=== PATIENT | male | born 1930 | race Caucasian/White ===

== ENCOUNTER 2017-04-06 13:16 | Inpatient (IN) ==
[2017-04-06] MEDS ORDERED: *HR* Heparin 5,000 UNIT/ML VIAL IVP ONE (13:40)
[2017-04-06] MEDS ORDERED: *HR* Heparin 5,000 UNIT/ML VIAL IVP PRN ×2 (13:40)
[2017-04-06] MEDS ORDERED: Heparin 25,000 UNIT/500 ML D5W 25,000 UNIT/500 ML MLS IVC SCH (13:45)
--- NOTE | 2017-04-06 13:45 | Emergency Department Note ---
Disposition Clinical Impression: Ischemic foot Disposition: Admitted As Inpatient Condition: Fair General Adult HPI - General Chief complaint: ED Chest Pain Stated complaint: right foot pain Time Seen by Provider: 04/06/17 13:27 Source: EMS Limitations: no limitations Nursing Notes Reviewed: Yes Vital Signs Reviewed: Yes - History of Present Illness HPI Narrative: Patient transferred from the [place] urgent care for evaluation of possible ischemic foot. Patient began complaining of pain on Thursday. and caregivers were unable to say when it started to change colors. There is concern about possible sprain of his ankle. Patient is unable to ambulate on his foot. Patient is somewhat confused and by states is related to his dementia. He states there is no change in mental status at this time. Pain Scale: 6 - Related Data Home Medications Medication Instructions Recorded Confirmed Allopurinol [Zyloprim 300 MG] 300 mg PO DAILY 04/06/17 04/06/17 Aspirin Enteric Coated [Aspirin EC] 81 mg PO DAILY 04/06/17 04/06/17 Budesonide/Formoterol 80/4.5 2 puff IH BID 04/06/17 04/06/17 [Symbicort 80/4.5] Calcium Citrate 400 mg PO BID 04/06/17 04/06/17 CloNIDine Patch [Catapres-TTS] 0.1 mg TD QWEEK 04/06/17 04/06/17 Donepezil HCl 23 mg PO HS 04/06/17 04/06/17 Ergocalciferol (VITAMIN D2) 50,000 unit PO MOTH 04/06/17 04/06/17 [Vitamin D2] Folic Acid 1 mg PO DAILY 04/06/17 04/06/17 Furosemide [Lasix] 20 mg PO DAILY 04/06/17 04/06/17 Gabapentin [Neurontin] 300 mg PO BID 04/06/17 04/06/17 Ipratropium [Atrovent Inhaler] 2 puff IH QID 04/06/17 04/06/17 Levothyroxine Sodium [Synthroid] 137 mcg PO QAM 04/06/17 04/06/17 Lisinopril [Zestril] 20 mg PO BID 04/06/17 04/06/17 Loperamide HCl [Anti-Diarrheal] 2 mg PO DAILY PRN 04/06/17 04/06/17 Magnesium Citrate 400 mg PO BID 04/06/17 04/06/17 Memantine HCl 10 mg PO BID 04/06/17 04/06/17 Omeprazole [PriLOSEC] 40 mg PO DAILY 04/06/17 04/06/17 Potassium Chloride [K-Tab ER] 20 meq PO DAILY 04/06/17 04/06/17 Pramipexole [Mirapex] 0.125 mg PO HS 04/06/17 04/06/17 Prazosin [Minipress] 1 mg PO HS 04/06/17 04/06/17 Psyllium Husk [Psyllium] 0.4 gm PO DAILY 04/06/17 04/06/17 Quetiapine Fumarate [SEROquel] 12.5 mg PO HS 04/06/17 04/06/17 Venlafaxine [Effexor] 37.5 mg PO BID 04/06/17 04/06/17 glyBURIDE [GlyBURIDE] 10 mg PO BIDWM 04/06/17 04/06/17 Allergies Allergy/AdvReac Type Severity Reaction Status Date / Time aspirin Allergy Nausea Verified 04/06/17 13:55 NSAIDS (Non-Steroidal Allergy Anaphylaxis Verified 04/06/17 13:55 Anti-Inflamma omeprazole Allergy Anaphylaxis Verified 04/06/17 13:55 tobacco Allergy Cough Uncoded 04/06/17 13:55 Review of Systems: CONSTITUTIONAL: No weight loss, fever, chills, weakness or fatigue. HEENT: Eyes: No visual changes. Ears, Nose, Throat: No hearing loss, difficulty talking or unable to swallow. SKIN: Foot discoloration CARDIOVASCULAR: No chest pain, chest pressure or chest discomfort. No palpitations or edema. RESPIRATORY: No shortness of breath, cough or sputum. GASTROINTESTINAL: No anorexia, nausea, vomiting or diarrhea. No abdominal pain or blood. GENITOURINARY: No burning on urination or hematuria. NEUROLOGICAL: No headache, dizziness, syncope, paralysis, ataxia, numbness or tingling in the extremities. No change in bowel or bladder control. MUSCULOSKELETAL: Foot pain Past Medical History - Past Medical History Medical history: Reports: arthritis, cancer, COPD, dementia, diabetes, hyperlipidemia, hypertension, renal disease, thyroid disease Psychiatric history: Reports: no psych history - Social History Smoking Status: Former smoker Alcohol use: Reports: none Drug use: Reports: none Physical Exam General appearance: NAD, conversant but confused Eyes: anicteric sclerae, moist conjunctivae; PERRL HENT: Atraumatic; oropharynx clear with moist mucous membranes and no mucosal ulcerations Neck: Normal inspection; Trachea midline; FROM, supple Lungs: CTA, with normal respiratory effort and no intercostal retractions CV: RRR, no MRGs Abdomen: Soft, non-tender; no rebound or gaurding Extremities: Right dorsum of foot with demarcation over the midfoot causing there to be a purple discoloration that has a Refill of 8 seconds. There is no palpable DP pulse. Doppler performed without dorsalis pedis pulse. Posterior tibial pulse also not present. The left extremity GÉNESIS was performed showing a GÉNESIS of 0.35. Skin: Normal temperature; no rash, ulcers or lesions - General Limitations: no limitations General appearance: alert Course - Reevaluation(s) Reevaluation #1: Patient continues to be stable. Patient not complaining of significant pain. Patient able to continue to wiggle his toes. Cap refill remains at 8 seconds. - Consultations Consultation #1: Dr. Vogel was paged at [phone]. Discussion at 8917. He was notified of decreased cap refill at 8 seconds. No Doppler pulses of the right foot both dorsalis pedis or posterior tibial. GÉNESIS of the left foot with a Doppler PT pulse and GÉNESIS of 0.35. 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 He requests a vascular lab ABIs performed prior to any further intervention. Consultation #2: Vascular lab notified at [id number] in regards to stat GÉNESIS. Consultation #3: Echo lab called back at 1526 with results of GÉNESIS. On the Right DP GÉNESIS of 0. PT at the ankle 0.37. Discussed with Dr. Coleman at 2152. He will come at bedside to evaluate the patient. He will likely need a diagnostic angiogram. Patient admitted to the hospital service to come and consult. Heparin to be started. Vital Signs Temperature 97.2 F L 04/06/17 13:17 Pulse Rate 64 04/06/17 13:17 Respiratory Rate 18 04/06/17 13:17 Blood Pressure 207/111 04/06/17 13:17 O2 Sat by Pulse Oximetry 96 04/06/17 13:17 Temperature 97.2 F L 04/06/17 13:17 Pulse Rate 55 04/06/17 15:27 Respiratory Rate 18 04/06/17 15:27 Blood Pressure 226/108 04/06/17 15:27 O2 Sat by Pulse Oximetry 97 04/06/17 15:27 Oxygen Delivery Oxygen Delivery Room Air Medical Decision Making - Lab Data Result diagrams: 04/06/17 13:50 04/06/17 13:50 Lab Results 04/06/17 04/06/17 04/06/17 Range/Units 13:50 13:50 13:50 WBC 7.3 (4.3-11.1) K/mcL RBC 5.06 (4.19-5.50) M/mcL Hgb 15.4 (12.9-16.9) g/dL Hct 46.9 (37.5-50.1) % MCV 92.7 (83.0-100.0) fL MCH 30.4 (28.0-33.3) pg MCHC 32.8 (31.6-35.5) g/dL RDW 12.3 (11.5-14.5) % Plt Count 197 (140-400) K/mcL MPV 11.1 (9.4-12.4) fL Immature Gran % 0.3 (0-4) % Seg Neutrophils % 64.3 % Lymphocytes % 24.7 % Monocytes % 8.2 % Eosinophils % 2.1 % Basophils % 0.4 % Neutrophils # 4.7 (1.6-8.9) K/mcL Lymphocytes # 1.8 (0.6-4.6) K/mcL Monocytes # 0.6 (0.0-1.3) K/mcL Eosinophils # 0.2 (0.0-0.6) K/mcL Basophils # 0.0 (0.0-0.2) K/mcL PT 11.8 (9.4-12.1) Seconds INR 1.1 APTT 26.4 (26.0-36.0) Seconds Sodium 138 (136-145) mEq/L Potassium 4.3 (3.5-4.5) mEq/L Chloride 100 (98-109) mEq/L Carbon Dioxide 29 (19-29) mEq/L BUN 21 (8-26) mg/dL Creatinine 1.78 H (0.72-1.25) mg/dL Est GFR ( Amer) 44 L (> 60) Est GFR (Non-Af Amer) 36 L (> 60) BUN/Creatinine Ratio 12 (6-26) Glucose 191 H (70-99) mg/dL Calculated Osmolality 294 (280-300) Calcium 9.5 (8.6-10.8) mg/dL Troponin I (0-0.03) ng/mL 04/06/17 Range/Units 13:50 WBC (4.3-11.1) K/mcL RBC (4.19-5.50) M/mcL Hgb (12.9-16.9) g/dL Hct (37.5-50.1) % MCV (83.0-100.0) fL MCH (28.0-33.3) pg MCHC (31.6-35.5) g/dL RDW (11.5-14.5) % Plt Count (140-400) K/mcL MPV (9.4-12.4) fL Immature Gran % (0-4) % Seg Neutrophils % % Lymphocytes % % Monocytes % % Eosinophils % % Basophils % % Neutrophils # (1.6-8.9) K/mcL Lymphocytes # (0.6-4.6) K/mcL Monocytes # (0.0-1.3) K/mcL Eosinophils # (0.0-0.6) K/mcL Basophils # (0.0-0.2) K/mcL PT (9.4-12.1) Seconds INR APTT (26.0-36.0) Seconds Sodium (136-145) mEq/L Potassium (3.5-4.5) mEq/L Chloride (98-109) mEq/L Carbon Dioxide (19-29) mEq/L BUN (8-26) mg/dL Creatinine (0.72-1.25) mg/dL Est GFR ( Amer) (> 60) Est GFR (Non-Af Amer) (> 60) BUN/Creatinine Ratio (6-26) Glucose (70-99) mg/dL Calculated Osmolality (280-300) Calcium (8.6-10.8) mg/dL Troponin I 0.00 (0-0.03) ng/mL Critical Care Time Critical Care Time: Yes Total Critical Care Time: 35 Attestation: CC time spent in consultation with vASC surgeon and medical management of life threatening limb injury. Attestation Statement - Attestation Attestation: I examined this patient and my medical decision-making was reviewed with the PATTERN PERFORATING MACHINE OPERATOR/PA/Advanced Practice Nurse/Resident Physician. I agree with the documented findings, disposition and treatment plan as described except to the extent set forth below.
[2017-04-06 14:00] LABS: Basophils % 0.4 %; Eosinophils # 0.2 K/mcL (0.0-0.6); Eosinophils % 2.1 %; Hematocrit 46.9 % (37.5-50.1); Hemoglobin 15.4 g/dL (12.9-16.9); Immature Granulocytes % 0.3 % (0-4); Lymphocytes # 1.8 K/mcL (0.6-4.6); Lymphocytes % 24.7 %; Mean Corpuscular HGB Conc 32.8 g/dL (31.6-35.5); Mean Corpuscular Hemoglobin 30.4 pg (28.0-33.3); Mean Corpuscular Volume 92.7 fL (83.0-100.0); Mean Platelet Volume 11.1 fL (9.4-12.4); Monocytes # 0.6 K/mcL (0.0-1.3); Monocytes % 8.2 %; Neutrophils # 4.7 K/mcL (1.6-8.9); Platelet Count 197 K/mcL (140-400); Red Blood Count 5.06 M/mcL (4.19-5.50); Red Cell Distribution Width 12.3 % (11.5-14.5); Segmented Neutrophils % 64.3 %
[2017-04-06 14:03] LABS: INR 1.1; Prothrombin Time 11.8 Seconds (9.4-12.1)
[2017-04-06 14:06] LABS: Activated Partial Thrombo Time 26.4 Seconds (26.0-36.0)
[2017-04-06 15:05] LABS: Calcium 9.5 mg/dL (8.6-10.8); Potassium 4.3 mEq/L (3.5-4.5)
[2017-04-06] MEDS ORDERED: Naloxone 0.4 MG/ML INJ IVP PRN (17:06)
[2017-04-06] MEDS ORDERED: CloNIDine Patch 0.1 MG PATCH (WEEKLY) TD SCH (17:15)
--- NOTE | 2017-04-06 17:17 | Vascular/Endovasc Consult Note ---
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 His GÉNESIS is consistent with severe disease in the right lower extremity. He has no tissue loss. The patient will be admitted and started on a heparin drip. He has been scheduled for an angiogram with possible intervention. The risks, benefits and alternatives were discussed and all questions were answered. He expressed understanding and wishes to proceed. Qualifiers: Peripheral atherosclerosis artery type: [place] artery Qualified Code(s): I70.221 - Atherosclerosis of [place] arteries of extremities with rest pain, right leg (2) Essential hypertension Status: Chronic (3) Hypothyroidism Status: Chronic Qualifiers: Hypothyroidism type: acquired Qualified Code(s): E03.9 - Hypothyroidism, unspecified (4) Diabetes mellitus Status: Chronic (5) Chronic kidney disease, stage 3 Status: Chronic The patient has chronic kidney disease stage III. He will need IVF hydration and mucomyst prior to the procedure. - History of Present Illness Consult date: 04/06/17 Requesting physician: Osvaldo Hancock Consult reason: Peripheral vascular disease Chief complaint: Right foot cyanosis History of present illness: Mr. Mares is a 87 year old male who presents to [facility] ER with complaints of discoloration and coolness in his right foot. The patient intially injured his ankle and then developed pain and discoloration. The patient reports that his foot did not get better and he was seen at the [facility]. Due to his symptoms, he was transferred to [facility] ER for further evaluation. Concern for limb ischemia arose and vascular surgery was consulted for further evaluation. At the time of exam, the patient reports that he is comfortable. He reports that his foot does not hurt at this time, but feels cold. He denies any chest pain, palpitations or shortness of breath. Past Med Surg Social Fam HX - Past Medical History Medical history: arthritis, cancer, COPD, dementia, diabetes, hyperlipidemia, hypertension, renal disease, thyroid disease Psychiatric history: no psych history - Social History Smoking Status: Former smoker Alcohol use: none Drug use: none - Family History Mother Living Status: Age at : 63 Cause of : CVA Father Living Status: Cause of : Lung CA Medications and Allergies Allopurinol [Zyloprim 300 MG] 300 mg PO DAILY 04/06/17 [History] Aspirin Enteric Coated [Aspirin EC] 81 mg PO DAILY 04/06/17 [History] Budesonide/Formoterol 80/4.5 [Symbicort 80/4.5] 2 puff IH BID 04/06/17 [History ] Calcium Citrate 400 mg PO BID 04/06/17 [History] CloNIDine Patch [Catapres-Tts] 0.1 mg TD QWEEK 04/06/17 [History] Donepezil HCl 23 mg PO HS 04/06/17 [History] Ergocalciferol (VITAMIN D2) [Vitamin D2] 50,000 unit PO MOTH 04/06/17 [History] Folic Acid 1 mg PO DAILY 04/06/17 [History] Furosemide [Lasix] 20 mg PO DAILY 04/06/17 [History] Gabapentin [Neurontin] 300 mg PO BID 04/06/17 [History] Ipratropium [ATROVENT Inhaler] 2 puff IH QID 04/06/17 [History] Levothyroxine Sodium [Synthroid] 137 mcg PO QAM 04/06/17 [History] Lisinopril [Zestril] 20 mg PO BID 04/06/17 [History] Loperamide HCl [Anti-Diarrheal] 2 mg PO DAILY PRN 04/06/17 [History] Magnesium Citrate 400 mg PO BID 04/06/17 [History] Memantine HCl 10 mg PO BID 04/06/17 [History] Potassium Chloride [K-Tab ER] 20 meq PO DAILY 04/06/17 [History] Pramipexole [Mirapex] 0.125 mg PO HS 04/06/17 [History] Prazosin [Minipress] 1 mg PO HS 04/06/17 [History] Psyllium Husk [Psyllium] 0.4 gm PO DAILY 04/06/17 [History] Quetiapine Fumarate [Seroquel] 12.5 mg PO HS 04/06/17 [History] Venlafaxine [Effexor] 37.5 mg PO BID 04/06/17 [History] glyBURIDE [GlyBURIDE] 10 mg PO BIDWM 04/06/17 [History] Clopidogrel [Plavix] 75 mg PO DAILY #30 tablet 04/08/17 [Rx] Pantoprazole Sodium 40 mg PO DAILY #30 tablet. 04/08/17 [Rx] Allergies aspirin Allergy (Verified 04/06/17 13:55) Nausea NSAIDS (Non-Steroidal Anti-Inflamma Allergy (Verified 04/06/17 13:55) Anaphylaxis tobacco Allergy (Uncoded 04/06/17 13:55) Cough All Systems Review: A 10-system review of systems was performed and is negative for pertinent findings except as documented above in the HPI. - Constitutional Constitutional: no chills, no fever(s) - Cardiovascular Cardiovascular: no chest pain at rest, no chest pain with exertion, no dyspnea at rest, no dyspnea on exertion Exam General: Present: Conversant, No Apparent Distress HEENT: Present: Atraumatic, Normocephaly, Pupils equal Neck: Absent: JVD, Lymphadenopathy, Left Carotid bruit, Right Carotid bruit Lungs: Present: Normal Breath Sounds, No Wheeze, Rales, Rhonchi Neuro: Present: Cranial nerves grossly intact, Motor nerves grossly intact ( diminished motor at bilateral toes), Sensory nerves grossly intact, Other ( resting comfortably, but easily arousable and appropriate response to questions and commands) Abdomen: Present: Soft, Non-tender Vascular: Present: Normal capillary refill (except at right forefoot below ankle , patient has cap refill <4 secs below ankle, right forefoot ruborous, blanches easily), Pulse, absent (pedal signals present bilaterally and biphasic, dorsalis pedis signal lost below right ankle). Absent: Edema Skin: Present: No rashes noted on visualized skin, Other (compartments soft) Consult Discharge Plan - Plan Instructions: Diabetes Mellitus Type 2 in Adults (DC), Peripheral Vascular Disorders (DC), Chronic Hypertension (DC) Additional Instructions: Follow-up with vascular surgery in one week Referrals: NO,PCP [Primary Care Provider] - () Prescriptions: Clopidogrel [Plavix] 75 mg PO DAILY #30 tablet Pantoprazole Sodium 40 mg PO DAILY #30 tablet.
[2017-04-06] MEDS ORDERED: Nitroglycerin 25 MG/250 ML INFUS..BTL IVC SCH (17:45)
--- NOTE | 2017-04-06 17:46 | Internal Med History&Physical ---
Date of Encounter: 04/06/17 Time of Encounter: 17:42 Assessment and Plan (1) Ischemia of right lower extremity Current visit: Yes Status: Acute Patient presents with cold, pulseless right foot. GÉNESIS on right was 0. Heparin drip. Dr. Goode consulted and plans angiogram tomorrow. NPO after midnight for planned procedure. (2) Acute kidney injury superimposed on chronic kidney disease Current visit: Yes Status: Acute Patient's creatinine 1.78, up from previous baseline of 1.37 in December. Patient to have vascular intervention tomorrow and we would like to protect the kidneys. Hold lasix and lisinopril IV fluids 0.9NS at 125ml/hr Mucomyst Q6 hours for 2 doses prior to angiogram and 2 doses after angiogram. check chemistry with morning labs. (3) Essential hypertension Current visit: Yes Status: Acute Patient has been very hypertensive since arrival, running 200's over 100s. Holding lisinopril and lasix due to NANCI. Nitro drip, titrate to SBP < 160. Continue clonidine patch, minipress. (4) Type 2 diabetes mellitus Current visit: Yes Status: Acute Check Hgb a1c Hold glyburide check blood sugars ACHS and Q6hr when NPO Sliding scale correction dose hypoglycemic protocol. Qualifiers: Diabetes mellitus complication status: with neurologic complications Diabetes mellitus complication detail: with polyneuropathy Diabetes mellitus intermodal customer service insulin use: without intermodal customer service use Qualified Code(s): E11.42 - Type 2 diabetes mellitus with diabetic polyneuropathy (5) Dementia Current visit: Yes Status: Acute Patient with Parkinson's dementia. He is oriented, but answers questions inappropriately at times. reports this is his baseline and "you never know what you are going to get". Continue home doses of donepezil, memantine, and mirapex. Monitor patient for increased confusion overnight. Fall precautions. Qualifiers: Dementia type: Parkinson's disease Dementia behavioral disturbance: without behavioral disturbance Qualified Code(s): G20 - Parkinson's disease; F02.80 - Dementia in other diseases classified elsewhere without behavioral disturbance (6) DVT prophylaxis Current visit: Yes Status: Acute Patient on heparin drip for ischemic foot, additional pharmacologic prophylaxis not warranted. Internal Medicine - H&P: HPI Chief complaint: right foot pain Admitted From: Emergency Dept Plans for Post Hospital Care: Home History of present illness: Mr. Mares is a 87 year old male with type 2 diabetes, hypertension, hyperlipidemia, chronic kidney disease, Parkinson's dementia, who presented to the emergency department from the [place] with a cold right foot. Patient reported that his right foot had been hurting him since an injury yesterday, patient reports that it is just cold now. He denies any headache, lightheadedness, chest pain, palpitations, shortness of breath, fever, chills or sweats. Evaluation in the emergency department included Dopplers of right foot with absent dorsalis pedis and posterior tibial pulse, delayed capillary refill, GÉNESIS on the right was 0. Dr. Goode of vascular surgery was consulted and plans vascular intervention tomorrow. Additional evaluation included labs which showed a BRITTON and CK 80 with creatinine of 1.78 up from previous known baseline of 1.37 in December. A showed no acute abnormality, troponin was normal at 0.00. Patient was hypertensive with blood pressures in the 200s over 100s. Heparin drip was started at the suggestion of Dr. Goode. On exam, patient is alert and oriented, occasionally answers questions inappropriately, patient's reports this is his baseline mental status. Heart has regular rate and rhythm, lungs are clear bilaterally to auscultation. Right foot is dark red below the ankle, has delayed capillary refill, absent pulses, and is cold to touch. Past Med Surg Social Fam HX - Past Medical History Medical history: arthritis, cancer, COPD, dementia, diabetes, hyperlipidemia, hypertension, renal disease, thyroid disease Psychiatric history: no psych history - Past Surgical History Surgical History: cholecystectomy, knee replacement, orthopedic, other, vascular surgery - Social History Smoking Status: Former smoker Alcohol use: none Drug use: none - Family History Mother Living Status: Age at : 63 Cause of : CVA Father Living Status: Cause of : Lung CA Internal Medicine - H&P: Meds Allopurinol [Zyloprim 300 MG] 300 mg PO DAILY 04/06/17 [History] Aspirin Enteric Coated [Aspirin EC] 81 mg PO DAILY 04/06/17 [History] Budesonide/Formoterol 80/4.5 [Symbicort 80/4.5] 2 puff IH BID 04/06/17 [History ] Calcium Citrate 400 mg PO BID 04/06/17 [History] CloNIDine Patch [Catapres-TTS] 0.1 mg TD QWEEK 04/06/17 [History] Donepezil HCl 23 mg PO HS 04/06/17 [History] Ergocalciferol (VITAMIN D2) [Vitamin D2] 50,000 unit PO MOTH 04/06/17 [History] Folic Acid 1 mg PO DAILY 04/06/17 [History] Furosemide [Lasix] 20 mg PO DAILY 04/06/17 [History] Gabapentin [Neurontin] 300 mg PO BID 04/06/17 [History] Ipratropium [Atrovent Inhaler] 2 puff IH QID 04/06/17 [History] Levothyroxine Sodium [Synthroid] 137 mcg PO QAM 04/06/17 [History] Lisinopril [Zestril] 20 mg PO BID 04/06/17 [History] Loperamide HCl [Anti-Diarrheal] 2 mg PO DAILY PRN 04/06/17 [History] Magnesium Citrate 400 mg PO BID 04/06/17 [History] Memantine HCl 10 mg PO BID 04/06/17 [History] Omeprazole [PriLOSEC] 40 mg PO DAILY 04/06/17 [History] Potassium Chloride [K-Tab ER] 20 meq PO DAILY 04/06/17 [History] Pramipexole [Mirapex] 0.125 mg PO HS 04/06/17 [History] Prazosin [Minipress] 1 mg PO HS 04/06/17 [History] Psyllium Husk [Psyllium] 0.4 gm PO DAILY 04/06/17 [History] Quetiapine Fumarate [SEROquel] 12.5 mg PO HS 04/06/17 [History] Venlafaxine [Effexor] 37.5 mg PO BID 04/06/17 [History] glyBURIDE [GlyBURIDE] 10 mg PO BIDWM 04/06/17 [History] Allergies aspirin Allergy (Verified 04/06/17 13:55) Nausea NSAIDS (Non-Steroidal Anti-Inflamma Allergy (Verified 04/06/17 13:55) Anaphylaxis omeprazole Allergy (Verified 04/06/17 13:55) Anaphylaxis tobacco Allergy (Uncoded 04/06/17 13:55) Cough All Systems PM: A 10-system review of systems was performed and is negative for pertinent findings except as documented above in the HPI. - Constitutional Constitutional: no chills, no fever(s), no night sweats - EENT Eyes: no change in vision, no discharge, no pain, no photophobia Ears: no ear discharge, no ear pain, no tinnitus Nose, mouth and throat: no dysphagia, no nasal discharge, no neck pain, no sore throat - Cardiovascular Cardiovascular ROS IM: no chest pain, no diaphoresis, no dyspnea, no lightheadedness, no palpitations, no syncope - Respiratory Respiratory: no cough, no dyspnea, no wheezing, no excessive phlegm production - Gastrointestinal Gastrointestinal: no abdominal pain, no diarrhea, no hematemesis, no hematochezia, no melena, no nausea, no vomiting - Musculoskeletal Musculoskeletal ROS IM: no numbness, no tingling Additional comments: right foot feels cold - Integumentary Integumentary IM: no rash, no unusual bruising - Neurological Neurological ROS: no confusion, no convulsions, no focal weakness, no numbness, no tingling, no tremor(s) - Hematologic/Lymphatic Hematologic/Lymphatic: no easy bruising - Constitutional Vitals: Temp Pulse Resp BP Pulse Ox 97.2 F L 55 18 226/108 97 04/06/17 13:17 04/06/17 15:27 04/06/17 15:27 04/06/17 15:27 04/06/17 15:27 General appearance: Present: A&O X 3, pleasant, no acute distress - Head Head exam: Present: atraumatic, normocephalic - Eye Eye exam: Present: PERRL, conjuntiva pink, sclera anicteric Pupils: Present: PERRL - Neck Neck exam general surgery: Present: supple, trachea midline. Absent: lymphadenopathy - Respiratory Respiratory exam: Present: CTAB. Absent: accessory muscle use, rales, rhonchi, wheezes - Cardiovascular Cardiovascular exam: Present: RRR, +S1, +S2. Absent: diastolic murmur, gallop, rubs, systolic murmur - GI/Abdominal GI/Abdominal exam: Present: normal bowel sounds, soft, no peritoneal signs. Absent: distended, tenderness - Extremities Exam Extremities exam: Present: radial pulses palpable and symetrical. Absent: calf tenderness, cyanotic, normal capillary refill, pedal edema - Expanded Lower Extremities Exam Foot/Toe exam: Present: erythema (right foot below ankle) Neuro vascular tendon exam: Present: extremity cold to touch (right foot), pulse deficit (right dorsalis pedis and posterior tibial) - Neurological Exam Neurological exam: Present: CN II-XII intact, oriented X3, no focal deficits. Absent: facial droop, speech deficit - Skin Skin exam: Present: dry, intact Internal Med - H&P Results - Labs CBC & Chem 7: 04/06/17 13:50 04/06/17 13:50 Labs: All Lab Results (24 Hours) 04/06/17 04/06/17 04/06/17 Range/Units 13:50 13:50 13:50 WBC 7.3 (4.3-11.1) K/mcL RBC 5.06 (4.19-5.50) M/mcL Hgb 15.4 (12.9-16.9) g/dL Hct 46.9 (37.5-50.1) % MCV 92.7 (83.0-100.0) fL MCH 30.4 (28.0-33.3) pg MCHC 32.8 (31.6-35.5) g/dL RDW 12.3 (11.5-14.5) % Plt Count 197 (140-400) K/mcL MPV 11.1 (9.4-12.4) fL Immature Gran % 0.3 (0-4) % Seg Neutrophils % 64.3 % Lymphocytes % 24.7 % Monocytes % 8.2 % Eosinophils % 2.1 % Basophils % 0.4 % Neutrophils # 4.7 (1.6-8.9) K/mcL Lymphocytes # 1.8 (0.6-4.6) K/mcL Monocytes # 0.6 (0.0-1.3) K/mcL Eosinophils # 0.2 (0.0-0.6) K/mcL Basophils # 0.0 (0.0-0.2) K/mcL PT 11.8 (9.4-12.1) Seconds INR 1.1 APTT 26.4 (26.0-36.0) Seconds Sodium 138 (136-145) mEq/L Potassium 4.3 (3.5-4.5) mEq/L Chloride 100 (98-109) mEq/L Carbon Dioxide 29 (19-29) mEq/L BUN 21 (8-26) mg/dL Creatinine 1.78 H (0.72-1.25) mg/dL Est GFR ( Amer) 44 L (> 60) Est GFR (Non-Af Amer) 36 L (> 60) BUN/Creatinine Ratio 12 (6-26) Glucose 191 H (70-99) mg/dL Calculated Osmolality 294 (280-300) Calcium 9.5 (8.6-10.8) mg/dL Troponin I (0-0.03) ng/mL 04/06/17 Range/Units 13:50 WBC (4.3-11.1) K/mcL RBC (4.19-5.50) M/mcL Hgb (12.9-16.9) g/dL Hct (37.5-50.1) % MCV (83.0-100.0) fL MCH (28.0-33.3) pg MCHC (31.6-35.5) g/dL RDW (11.5-14.5) % Plt Count (140-400) K/mcL MPV (9.4-12.4) fL Immature Gran % (0-4) % Seg Neutrophils % % Lymphocytes % % Monocytes % % Eosinophils % % Basophils % % Neutrophils # (1.6-8.9) K/mcL Lymphocytes # (0.6-4.6) K/mcL Monocytes # (0.0-1.3) K/mcL Eosinophils # (0.0-0.6) K/mcL Basophils # (0.0-0.2) K/mcL PT (9.4-12.1) Seconds INR APTT (26.0-36.0) Seconds Sodium (136-145) mEq/L Potassium (3.5-4.5) mEq/L Chloride (98-109) mEq/L Carbon Dioxide (19-29) mEq/L BUN (8-26) mg/dL Creatinine (0.72-1.25) mg/dL Est GFR ( Amer) (> 60) Est GFR (Non-Af Amer) (> 60) BUN/Creatinine Ratio (6-26) Glucose (70-99) mg/dL Calculated Osmolality (280-300) Calcium (8.6-10.8) mg/dL Troponin I 0.00 (0-0.03) ng/mL - Diagnostic Studies Chest x-ray Additional comments: Chest X-Ray 04/06/17 13:40 IMPRESSION: No acute abnormality. D/ / Blake Hess MD / Blake Hess MD Interpreting Provider: Blake Hess MD
--- NOTE | 2017-04-06 17:49 | Event Note ---
Date of Encounter: 04/06/17 Time of Encounter: 17:46 Patient seen and examined with nurse practitioner. Acute ischemia on the right leg and foot. Patient is having color changes and rest pain. Absent dorsalis pedis pulsations. Vascular surgery evaluated the patient and 11 angiography in the morning. Discussed with risk of contrast nephropathy. To keep the patient hydrated in addition to mucomyst. Patient has hypertensive urgency. We will start nitroglycerin drip. Patient this full code
[2017-04-06] MEDS ORDERED: *HR* Dextrose 50 % in Water (Syg) 50 ML SYRINGE IVP PRN (17:57)
[2017-04-06] MEDS ORDERED: Dextrose Gel 15 GM PO PRN ×2 (17:57)
[2017-04-06] MEDS ORDERED: D5% in Water 1,000 ML IVC PRN (17:57)
[2017-04-06] MEDS ORDERED: Budesonide/Formoterol 80/4.5 MDI IH SCH (21:00)
[2017-04-06] MEDS ORDERED: (Donepezil Hcl [Donepezil Hcl] 23 MG) PO SCH (21:00)
[2017-04-06] MEDS ORDERED: Insulin LISPRO 300 UNITS/3 ML VIAL SQ SCH (21:00)
[2017-04-06] MEDS: 0.9 % Sodium Chloride 1,000 ML IVC SCH (21:29)
[2017-04-06] MEDS: Gabapentin 300 MG CAPSULE PO SCH (21:31)
[2017-04-06 22:58] LABS: Activated Partial Thrombo Time 128.8 Seconds (26.0-36.0)
[2017-04-06 23:11] LABS: Heparin anti-factor XA UFH 0.88 IU/mL (0.30-0.70)
[2017-04-07] MEDS: Insulin LISPRO 300 UNITS/3 ML VIAL SQ SCH ×4 (01:15→17:29)
[2017-04-07] MEDS: 0.9 % Sodium Chloride 1,000 ML IVC SCH ×3 (06:09→23:24)
[2017-04-07 06:58] LABS: Basophils % 0.5 %; Eosinophils # 0.2 K/mcL (0.0-0.6); Eosinophils % 2.1 %; Hematocrit 38.7 % (37.5-50.1); Immature Granulocytes % 0.3 % (0-4); Lymphocytes # 2.2 K/mcL (0.6-4.6); Lymphocytes % 28.5 %; Mean Corpuscular HGB Conc 33.6 g/dL (31.6-35.5); Mean Corpuscular Hemoglobin 30.7 pg (28.0-33.3); Mean Corpuscular Volume 91.3 fL (83.0-100.0); Mean Platelet Volume 11.8 fL (9.4-12.4); Monocytes # 0.6 K/mcL (0.0-1.3); Neutrophils # 4.6 K/mcL (1.6-8.9); Platelet Count 165 K/mcL (140-400); Red Blood Count 4.24 M/mcL (4.19-5.50); Red Cell Distribution Width 12.6 % (11.5-14.5); Segmented Neutrophils % 60.6 %
[2017-04-07] MEDS ORDERED: Heparin 1,000 UNITS/500 mL NS 500 ML ONE (07:03)
[2017-04-07] MEDS ORDERED: *HR* Heparin 10,000 UNIT/10 ML VIAL ONE (07:03)
[2017-04-07] MEDS ORDERED: 0.9 % Sodium Chloride 1,000 ML ONE (07:03)
[2017-04-07 07:06] LABS: INR 1.1; Prothrombin Time 12.4 Seconds (9.4-12.1)
[2017-04-07 07:23] LABS: Calcium 8.5 mg/dL (8.6-10.8); Potassium 3.7 mEq/L (3.5-4.5)
--- NOTE | 2017-04-07 07:24 | Arterial Study Report ---
LE Arterial Physiologic Study Patient Name:Everett Mares Order Number:[id number] Procedure Date:04/06/2017 Date:8Age:87 yrs Gender:Male Lt BP:230 / mmHg Rt.BP:228 / mmHgHeart Rate: Location:[facility] ED Room #: 25 Chief Technician X Ray:Julius Sharma RN Referring MD:Osvaldo Hancock DO regulatory internship:None Reading MD:Adolph Alvarado MD Primary Indications:Cold Foot Risk Factors Yes/No Hypertension Yes Smoker Previous No Anticoagulants No Previous Vascular Surgery No Diabetes No Hypercholesterolemia No Impressions: The right GÉNESIS is consistent with severe disease Right GÉNESIS: 0.37. The left GÉNESIS is consistent with mild disease. Left GÉNESIS: 0.84 Recommendations: Risk factor reduction. Further evaluation recommended. After imaging the patient was sent to the emergency room. Test completed on 04/06/2017 at 3:10:00 pm. Critical findings reported to Dr Osvaldo Hancock by phone at 3:25:00 pm on 04/06/2017 by Julius Sharma RN. Findings LE Arterial Physiologic Exam: Segmental Pressures: Right: The right high thigh pressure is 200 mmHg with an index of 0.87. The right above knee pressure is 182 mmHg with an index of 0.79. The right below knee pressure is 148 mmHg with an index of 0.64. The right posterior tibial pressure is 84 mmHg with an index of 0.37. Left: The left posterior tibial pressure is 193 mmHg with an index of 0.84. The left dorsalis pedis pressure is 185 mmHg with an index of 0.8. PVR: Right: The PVR waveforms are mildly diminished in the right high thigh, moderately diminished in the right lower thigh and severely diminished in the right calf and right ankle. Left: The PVR waveforms are mildly diminished in the left ankle. Prior Study: No prior study available for comparison. Segmental Pressures Side Location Pressure Index Result Right High Thigh 200 0.87 Mildly Diminished Right Above Knee 182 0.79 Moderately Diminished Right Below Knee 148 0.64 Severely Diminished Right Posterior Tibial 84 0.37 Severely Diminished Right Dorsalis Pedis 0 Left High Thigh noncompressible Left Above Knee noncompressible Left Below Knee noncompressible Left Posterior Tibial 193 0.84 Mildly Diminished Left Dorsalis Pedis 185 0.80 Mildly Diminished Ankle Brachial Index Right Systolic Diastolic GÉNESIS Brachial 228 0.37 Posterior Tibial 84 0.37 Left Systolic Diastolic GÉNESIS Brachial 230 0.84 Dorsalis Pedis 185 0.80 Posterior Tibial 193 0.84 Updated by Adolph Alvarado MD on 04/07/2017 7:19:13 AM with Status of Final electronically signed on 04/07/2017 7:19:30 AM with status of Final
[2017-04-07] MEDS ORDERED: Insulin LISPRO 300 UNITS/3 ML VIAL SQ SCH ×2 (07:30→21:00)
--- NOTE | 2017-04-07 07:49 | Pre-Sedation Evaluation ---
Pre-sedation evaluation - Pre-sedation checklist Date of procedure: 04/07/17 Procedure: angiogram Recent Vitals: Last Vital Signs Temp 98.3 F 04/07/17 04:05 Pulse 70 04/07/17 07:16 Resp 16 04/07/17 07:16 BP 148/82 04/07/17 07:16 Pulse Ox 99 04/07/17 04:05 H&P (including ROS) documented in medical record: Yes Previous reaction to sedatives/anesthetics: No Dietary Status: NPO after Midnight Dentition: dentures removed ASA Classification *see protocol: CLASS III-Severe systemic disease Plan of Care: Pt appropriate candidate for procedure/moderate/conscious sedation , Risks/benefits of procedure/sedation discussed w/ patient/family
[2017-04-07] MEDS: Budesonide/Formoterol 80/4.5 MDI IH SCH ×2 (08:08→20:01)
[2017-04-07] MEDS ORDERED: *HR* FentaNYL (PF) 100 MCG/2 ML VIAL ONE ×2 (08:16→08:38)
--- NOTE | 2017-04-07 08:41 | Procedure Note ---
Date of procedure: 04/07/17 Pre-op diagnosis: Peripheral vascular disease with rest pain Post-op diagnosis: same Procedure: Aortogram with bilateral lower extremity runoff, right lower extremity selective angiography, right superficial femoral artery angioplasty with 4 x 220mm balloon via left common femoral artery 4 welsh sheath. Direct pressure held for hemostasis. Anesthesia: IV sedation (moderate conscious sedation) Surgeon: Adolph Alvarado Estimated blood loss (cc): 1 Pathology: none sent Condition: stable (no complications) Disposition: floor
--- NOTE | 2017-04-07 08:47 | Event Note ---
Date of Encounter: 04/07/17 Time of Encounter: 08:40 The patient underwent angiography with right superficial femoral artery angioplasty this morning. His angiogram revealed a right anterior tibial artery chronic occlusion. His right posterior tibial artery and peroneal artery terminate above the ankle. No significant vessels are identified in the right foot. The patient will be started on Plavix. Continue with IVF hydration and mucomyst due to his chronic kidney disease. Bedrest today.
[2017-04-07] MEDS ORDERED: *HR* HYDROcodone/Acet 5/325 mg TABLET PO PRN (08:48)
[2017-04-07] MEDS ORDERED: *HR* OxyCODONE/APAP 5/325 TABLET PO PRN (08:48)
[2017-04-07] MEDS ORDERED: Acetaminophen 325 MG TABLET PO PRN (08:48)
[2017-04-07] MEDS: Gabapentin 300 MG CAPSULE PO SCH ×2 (11:35→23:25)
[2017-04-07] MEDS: Aspirin Enteric Coated 81 MG Tablet PO SCH (11:36)
[2017-04-07] MEDS: Lisinopril 20 MG TABLET PO SCH ×2 (11:40→23:24)
[2017-04-07] MEDS: *HR* Acetylcysteine 20% 600 MG/3 ML ORAL SYRINGE PO SCH ×2 (12:28→17:26)
--- NOTE | 2017-04-07 14:46 | Internal Med Progress Note ---
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 Has not been started on Plavix. Will continue. High-risk for complications this time. Qualifiers: Peripheral atherosclerosis artery type: [place] artery Qualified Code(s): I70.221 - Atherosclerosis of [place] arteries of extremities with rest pain, right leg (2) Chronic kidney disease, stage 3 Current Visit: Yes Status: Chronic Assessment and plan: Renal function remained stable. Creatinine is 1.38 today. Receiving IV fluids and Mucomyst as patient received contrast dye for angioplasty. Will follow renal function closely. (3) Dementia Current Visit: Yes Status: Chronic Assessment and plan: Continue Namenda and Aricept. Qualifiers: Dementia type: Parkinson's disease Dementia behavioral disturbance: without behavioral disturbance Qualified Code(s): G20 - Parkinson's disease; F02.80 - Dementia in other diseases classified elsewhere without behavioral disturbance (4) DVT prophylaxis Current Visit: Yes Status: Acute Assessment and plan: Start patient on subcutaneous heparin as he is no longer on IV heparin (5) Essential hypertension Current Visit: Yes Status: Chronic (6) Ischemia of right lower extremity Current Visit: Yes Status: Acute Assessment and plan: Treated with balloon angioplasty (7) Type 2 diabetes mellitus Current Visit: Yes Status: Chronic Assessment and plan: Blood sugars improving. We will continue sliding scale insulin and continue monitoring blood sugars. A1c is 9 Qualifiers: Diabetes mellitus complication status: with neurologic complications Diabetes mellitus complication detail: with polyneuropathy Diabetes mellitus buttermaker insulin use: without fci use Qualified Code(s): E11.42 - Type 2 diabetes mellitus with diabetic polyneuropathy (8) Hypertensive urgency Current Visit: Yes Status: Acute Assessment and plan: Improving. On nitroglycerin drip. Patient will be started back on his usual antihypertensive regimen and will be weaned off nitroglycerin drip. We will adjust oral antihypertensives according to response. Continue monitoring blood pressure closely. High-risk for complications - Subjective Interval history: Patient underwent right-sided superficial femoral artery angioplasty this morning. No stents were placed. He is very somnolent postprocedure but awakes and follow some commands. Appears comfortable. Has been hypotensive and is still on nitroglycerin drip. No other acute issues reported overnight. - Constitutional Vitals: Temp Pulse Resp BP Pulse Ox 98.3 F 54 16 167/80 99 04/07/17 04:05 04/07/17 13:03 04/07/17 13:03 04/07/17 13:03 04/07/17 04:05 Exam: Patient is currently somnolent but awakes and responds to commands. - Neck Neck exam general surgery: Present: supple, trachea midline. Absent: lymphadenopathy - Respiratory Respiratory exam: Present: CTAB. Absent: accessory muscle use, rales, rhonchi, wheezes - Cardiovascular Cardiovascular exam: Present: RRR, +S1, +S2. Absent: diastolic murmur, gallop, rubs, systolic murmur - GI/Abdominal GI/Abdominal exam: Present: normal bowel sounds, soft, no peritoneal signs. Absent: distended, tenderness - Extremities Exam Extremities exam: Present: pedal edema. Absent: calf tenderness, cyanotic - Skin Skin exam: Present: dry, intact Internal Medicine: Result - Labs CBC & Chem 7: 04/07/17 06:24 04/07/17 06:24 Labs: Short CBC 04/07/17 Range/Units 06:24 WBC 7.6 (4.3-11.1) K/mcL Hgb 13.0 D (12.9-16.9) g/dL Hct 38.7 (37.5-50.1) % Plt Count 165 (140-400) K/mcL Neutrophils # 4.6 (1.6-8.9) K/mcL BMP 04/07/17 06:24 Sodium 140 Potassium 3.7 Chloride 105 Carbon Dioxide 25 BUN 22 Creatinine 1.38 H Glucose 162 H Calcium 8.5 L - ABG Interpretation ABG results: PT/INR, D-dimer PT 12.4 Seconds (9.4-12.1) H 04/07/17 06:24 - Impressions Impressions Head CT 04/07/17 09:49 IMPRESSION: No acute intracranial abnormality. Mild to moderate generalized volume loss and microvascular ischemic disease. D/ / 04/07/2017 11:17:23 Beba Montana MD / Josi Chanel Interpreting Provider: Beba Montana MD Consult Discharge Plan - Plan Referrals: NO,PCP [Primary Care Provider] - (possible ECF) - Attending Attestation This document has been at least partially created by [employer] recognition technology by Dr. Gloria. Errors in grammar, wording or other phrases may exist. If errors are found after the documentation is signed, they will be addressed individually in the addendum section of this document when appropriate.
[2017-04-07] MEDS: *HR* Heparin 5,000 UNIT/ML VIAL SQ SCH (17:27)
--- NOTE | 2017-04-07 23:46 | Electrocardiograph Report ---
[place] [id number] Test Date: 2017-04-06 Pat Name: Everett Mares Department: 102 Room: 2A22 Gender: M Layout Man: Doris : 1930 Requested By: Osvaldo Hancock Order Number: [id number] Reading MD: Lydia Philip Measurements Intervals [place] Rate: 60 P: 85 MA: 247 QRS: -59 QRSD: 131 T: -12 QT: 430 QTc: 432 Interpretive Statements SINUS RHYTHM WITH FIRST DEGREE AV BLOCK MARKED LEFT AXIS DEVIATION [QRS AXIS < -30] INTRAVENTRICULAR CONDUCTION DELAY [130+ ms QRS DURATION] MINIMAL VOLTAGE CRITERIA FOR LVH, CONSIDER NORMAL VARIANT Electronically Signed On 04-07-2017 23:44:34 EDT by Lydia Philip
[2017-04-08 04:37] LABS: Basophils % 0.4 %; Eosinophils # 0.1 K/mcL (0.0-0.6); Eosinophils % 1.2 %; Hematocrit 38.9 % (37.5-50.1); Hemoglobin 12.9 g/dL (12.9-16.9); Immature Granulocytes % 0.4 % (0-4); Lymphocytes % 24.5 %; Mean Corpuscular HGB Conc 33.2 g/dL (31.6-35.5); Mean Corpuscular Hemoglobin 30.9 pg (28.0-33.3); Mean Corpuscular Volume 93.1 fL (83.0-100.0); Mean Platelet Volume 11.5 fL (9.4-12.4); Monocytes # 0.7 K/mcL (0.0-1.3); Monocytes % 9.1 %; Neutrophils # 5.2 K/mcL (1.6-8.9); Platelet Count 168 K/mcL (140-400); Red Blood Count 4.18 M/mcL (4.19-5.50); Red Cell Distribution Width 12.3 % (11.5-14.5); Segmented Neutrophils % 64.4 %
[2017-04-08 05:05] LABS: Calcium 8.4 mg/dL (8.6-10.8); Potassium 3.6 mEq/L (3.5-4.5)
[2017-04-08] MEDS: *HR* Heparin 5,000 UNIT/ML VIAL SQ SCH (06:48)
--- NOTE | 2017-04-08 08:03 | Vascular/[facility] Progress Note ---
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 His angiogram revealed no named vessels below the level of the ankle and a chronic right anterior tibial artery occlusion. His foot is cyanotic with decreased capillary refill. He has no target vessel for revascularization. However, he has no tissue loss and denies pain. He received a loading dose of plavix after his angiogram yesterday and will remain on plavix. He is not a good candidate for anticoagulation due to his fall risk. He may be discharged from a vascular surgery standpoint. He will need to follow-up in vascular in a week. If he develops progressive ischemia, he may require amputation in the future. 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 His creatinine remains below his baseline. (5) Hypothyroidism Status: Chronic Qualifiers: Hypothyroidism type: acquired Qualified Code(s): E03.9 - Hypothyroidism, unspecified - Subjective Interval history: The patient is resting comfortably this morning. He is arousable. He denies pain in his foot. He denies chest pain or shortness of breath. Vital Signs, Last 4 Hours Temp Pulse Resp BP Pulse Ox 04/08/17 07:18 97.9 F 67 16 191/87 97 04/08/17 04:07 97.9 F 63 16 172/83 95 - Physical Examination General: Present: Conversant HEENT: Present: Atraumatic, Pupils equal Cardiac: Present: Normal S1 and S2 Lungs: Present: Normal Breath Sounds Neuro: Present: Alert and responsive, No focal deficits noted, Motor nerves grossly intact, Sensory nerves grossly intact Vascular: Present: Normal capillary refill (left foot), Capillary refill delayed (right foot below ankle), Pulse, diminished (right dorsalis pedis signal remains absent, right posterior tibial signal biphasic), Cyanosis ( persistent right foot cyanosis below ankle) Abdomen: Present: Soft Skin: Present: No rashes noted on visualized skin, Other (no hematoma) Results 04/08/17 04:09 04/08/17 04:09 Lab Results, Last 24 hours 04/08/17 04/08/17 04:09 04:09 WBC 8.1 Hgb 12.9 Hct 38.9 Plt Count 168 Sodium 136 Potassium 3.6 Chloride 102 Carbon Dioxide 25 BUN 19 Creatinine 1.44 H Glucose 179 H Calcium 8.4 L Consult Discharge Plan - Plan Instructions: Diabetes Mellitus Type 2 in Adults (DC), Peripheral Vascular Disorders (DC), Chronic Hypertension (DC) Additional Instructions: Follow-up with vascular surgery in one week Referrals: NO,PCP [Primary Care Provider] - () Prescriptions: Clopidogrel [Plavix] 75 mg PO DAILY #30 tablet Pantoprazole Sodium 40 mg PO DAILY #30 tablet.
[2017-04-08] MEDS ORDERED: Folic Acid 1 MG TABLET PO SCH (09:00)
[2017-04-08] MEDS ORDERED: Furosemide 20 MG TABLET PO SCH (09:00)
[2017-04-08] MEDS: Aspirin Enteric Coated 81 MG Tablet PO SCH (10:37)
[2017-04-08] MEDS: Gabapentin 300 MG CAPSULE PO SCH (10:37)
[2017-04-08] MEDS: Lisinopril 20 MG TABLET PO SCH (10:38)
[2017-04-08] MEDS: Insulin LISPRO 300 UNITS/3 ML VIAL SQ SCH ×2 (10:38→13:04)
[2017-04-08] MEDS: Budesonide/Formoterol 80/4.5 MDI IH SCH (11:43)
--- NOTE | 2017-04-08 14:54 | Discharge Summary ---
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 Priority: Primary Status: Acute Qualifiers: Peripheral atherosclerosis artery type: [place] artery Qualified Code(s): I70.221 - Atherosclerosis of [place] arteries of extremities with rest pain, right leg (2) Hypertensive urgency Priority: Secondary Status: Acute (3) Chronic kidney disease, stage 3 Priority: Secondary Status: Chronic (4) Dementia Priority: Secondary Status: Chronic Qualifiers: Dementia type: Parkinson's disease Dementia behavioral disturbance: without behavioral disturbance Qualified Code(s): G20 - Parkinson's disease; F02.80 - Dementia in other diseases classified elsewhere without behavioral disturbance (5) DVT prophylaxis Priority: Secondary Status: Acute (6) Essential hypertension Priority: Secondary Status: Chronic (7) Ischemia of right lower extremity Priority: Secondary Status: Acute (8) Type 2 diabetes mellitus Priority: Secondary Status: Chronic Qualifiers: Diabetes mellitus complication status: with neurologic complications Diabetes mellitus complication detail: with polyneuropathy Diabetes mellitus bed bug exterminator insulin use: without retirement use Qualified Code(s): E11.42 - Type 2 diabetes mellitus with diabetic polyneuropathy - Discharge Medications Prescriptions: Clopidogrel [Plavix] 75 mg PO DAILY #30 tablet Pantoprazole Sodium 40 mg PO DAILY #30 tablet.dr Home Medications: Allopurinol [Zyloprim 300 MG] 300 mg PO DAILY 04/06/17 [History] Aspirin Enteric Coated [Aspirin EC] 81 mg PO DAILY 04/06/17 [History] Budesonide/Formoterol 80/4.5 [Symbicort 80/4.5] 2 puff IH BID 04/06/17 [History ] Calcium Citrate 400 mg PO BID 04/06/17 [History] CloNIDine Patch [Catapres-Tts] 0.1 mg TD QWEEK 04/06/17 [History] Donepezil HCl 23 mg PO HS 04/06/17 [History] Ergocalciferol (VITAMIN D2) [Vitamin D2] 50,000 unit PO MOTH 04/06/17 [History] Folic Acid 1 mg PO DAILY 04/06/17 [History] Furosemide [Lasix] 20 mg PO DAILY 04/06/17 [History] Gabapentin [Neurontin] 300 mg PO BID 04/06/17 [History] Ipratropium [ATROVENT Inhaler] 2 puff IH QID 04/06/17 [History] Levothyroxine Sodium [Synthroid] 137 mcg PO QAM 04/06/17 [History] Lisinopril [Zestril] 20 mg PO BID 04/06/17 [History] Loperamide HCl [Anti-Diarrheal] 2 mg PO DAILY PRN 04/06/17 [History] Magnesium Citrate 400 mg PO BID 04/06/17 [History] Memantine HCl 10 mg PO BID 04/06/17 [History] Potassium Chloride [K-Tab ER] 20 meq PO DAILY 04/06/17 [History] Pramipexole [Mirapex] 0.125 mg PO HS 04/06/17 [History] Prazosin [Minipress] 1 mg PO HS 04/06/17 [History] Psyllium Husk [Psyllium] 0.4 gm PO DAILY 04/06/17 [History] Quetiapine Fumarate [Seroquel] 12.5 mg PO HS 04/06/17 [History] Venlafaxine [Effexor] 37.5 mg PO BID 04/06/17 [History] glyBURIDE [GlyBURIDE] 10 mg PO BIDWM 04/06/17 [History] Clopidogrel [Plavix] 75 mg PO DAILY #30 tablet 04/08/17 [Rx] Pantoprazole Sodium 40 mg PO DAILY #30 tablet. 04/08/17 [Rx] Allergies/Adverse Reactions: Allergies aspirin Allergy (Verified 04/06/17 13:55) Nausea NSAIDS (Non-Steroidal Anti-Inflamma Allergy (Verified 04/06/17 13:55) Anaphylaxis tobacco Allergy (Uncoded 04/06/17 13:55) Cough Procedures/tests Complete & Pending: Procedures Performed prior 72 hours Category Date Time Status CT head/brain wo con [CT] Stat Cat Scan 04/07/17 09:49 Draft CL Peripheral Angiography [CL] Routine Recreation Worker 04/07/17 07:06 Ordered Date of admission: 04/06/17 17:10 Primary care physician: PCP NO Consults: 04/08/17 07:21 Consult to Occupational Therapy [CONS] Routine Comment: Evaluate, develop and implement POC Reason for Consult: frequent falls, last one he destroyed his walker Consult to Physical Therapy [CONS] Routine Comment: Evaluate, develop and implement POC Reason for Consult: frequent falls, last one he destroyed his walker - Patient Status Disposition: Home Health Service Condition: Fair Functional capacity at discharge: uses cane/walker Overall status at discharge: patient is progressing back to baseline - Discharge Instructions Instructions: Peripheral Vascular Disorders (DC), Diabetes Mellitus Type 2 in Adults (DC), Chronic Hypertension (DC) Follow Up With: NO,PCP [Primary Care Provider] - (possible ECF) Additional Instructions: Follow-up with vascular surgery in one week - Diet and Activity Activity: as per physical therapy, other Diet: low fat, low cholesterol, low salt diet Hospital course: Mr. Mares is a 87 year old male patient with history of peripheral vascular disease, hypertension, dementia, chronic kidney disease who was admitted here with acute on chronic right lower extremity pain. Patient had absent dorsalis pedis pulse on examination. He had severe peripheral vascular disease in right lower extremity per GÉNESIS. As such vascular surgery was consulted and they recommended angiogram for the patient with possible intervention. Patient underwent angiogram yesterday and underwent balloon angioplasty. He has been placed on aspirin and Plavix. Patient was initially placed on heparin but this has not been stopped as patient is poor anticoagulation candidate. At this time , patient is doing much better and is stable to be discharged home with home health and physical therapy. Patient also had hypertensive urgency on presentation with severely elevated blood pressure and required nitroglycerin drip intravenously to control his blood pressure better. He has not been placed back on his usual antihypertensive medications and his blood pressure is better controlled. He will follow up with vascular surgery after discharge. His renal function has remained stable despite receiving contrast dye for his angiogram. - Time Spent with Patient Total time spent providing and/or coordinating discharge services: Greater than 30 minutes (35 min) - Constitutional Vitals: Temp Pulse Resp BP Pulse Ox 98.3 F 77 14 134/76 95 04/08/17 11:52 04/08/17 14:11 04/08/17 14:11 04/08/17 14:11 04/08/17 14:11 General appearance: Present: A&O X 3, pleasant, no acute distress, answers questions appropriately - Respiratory Respiratory exam: Present: CTAB. Absent: accessory muscle use, rales, rhonchi, wheezes - Cardiovascular Cardiovascular exam: Present: RRR, +S1, +S2. Absent: diastolic murmur, gallop, rubs, systolic murmur - GI/Abdominal GI/Abdominal exam: Present: normal bowel sounds, soft, no peritoneal signs. Absent: distended, tenderness - Extremities Exam Extremities exam: Present: warm, radial pulses palpable and symetrical. Absent : calf tenderness, cyanotic, pedal edema - Attending Attestation This document has been at least partially created by [employer] recognition technology by Dr. Gloria. Errors in grammar, wording or other phrases may exist. If errors are found after the documentation is signed, they will be addressed individually in the addendum section of this document when appropriate.
--- NOTE | 2017-04-08 15:09 | Physician Discharge Referral ---
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 For more information, call the [employer] Tobacco Quit Line at 0-632-NFQC-NOW. - Diet/Nutrition Diet/Nutrition Orders: Cardiac, No Concentrated Sweets (and diabetic) - Activity Activity Orders: Walker - Services Needed Following services are medically necessary services: Home Health Aide, Physical Therapy, Occupational Therapy - Transfer Medications Prescriptions: Clopidogrel [Plavix] 75 mg PO DAILY #30 tablet Pantoprazole Sodium 40 mg PO DAILY #30 tablet.dr Home Medications: Allopurinol [Zyloprim 300 MG] 300 mg PO DAILY 04/06/17 [History] Aspirin Enteric Coated [Aspirin EC] 81 mg PO DAILY 04/06/17 [History] Budesonide/Formoterol 80/4.5 [Symbicort 80/4.5] 2 puff IH BID 04/06/17 [History ] Calcium Citrate 400 mg PO BID 04/06/17 [History] CloNIDine Patch [Catapres-Tts] 0.1 mg TD QWEEK 04/06/17 [History] Donepezil HCl 23 mg PO HS 04/06/17 [History] Ergocalciferol (VITAMIN D2) [Vitamin D2] 50,000 unit PO MOTH 04/06/17 [History] Folic Acid 1 mg PO DAILY 04/06/17 [History] Furosemide [Lasix] 20 mg PO DAILY 04/06/17 [History] Gabapentin [Neurontin] 300 mg PO BID 04/06/17 [History] Ipratropium [ATROVENT Inhaler] 2 puff IH QID 04/06/17 [History] Levothyroxine Sodium [Synthroid] 137 mcg PO QAM 04/06/17 [History] Lisinopril [Zestril] 20 mg PO BID 04/06/17 [History] Loperamide HCl [Anti-Diarrheal] 2 mg PO DAILY PRN 04/06/17 [History] Magnesium Citrate 400 mg PO BID 04/06/17 [History] Memantine HCl 10 mg PO BID 04/06/17 [History] Potassium Chloride [K-Tab ER] 20 meq PO DAILY 04/06/17 [History] Pramipexole [Mirapex] 0.125 mg PO HS 04/06/17 [History] Prazosin [Minipress] 1 mg PO HS 04/06/17 [History] Psyllium Husk [Psyllium] 0.4 gm PO DAILY 04/06/17 [History] Quetiapine Fumarate [Seroquel] 12.5 mg PO HS 04/06/17 [History] Venlafaxine [Effexor] 37.5 mg PO BID 04/06/17 [History] glyBURIDE [GlyBURIDE] 10 mg PO BIDWM 04/06/17 [History] Clopidogrel [Plavix] 75 mg PO DAILY #30 tablet 04/08/17 [Rx] Pantoprazole Sodium 40 mg PO DAILY #30 tablet. 04/08/17 [Rx] Allergies/Adverse Reactions: Allergies aspirin Allergy (Verified 04/06/17 13:55) Nausea NSAIDS (Non-Steroidal Anti-Inflamma Allergy (Verified 04/06/17 13:55) Anaphylaxis tobacco Allergy (Uncoded 04/06/17 13:55) Cough Certification: Further, I certify that my clinical findings support that this patient is homebound (i.e. absences from home require considerable and taxing effort and are for medical reasons or moravian services or infrequently or short duration when for other reasons) because: Homebound Reason: Patient requires assistance of a person or device to safely leave home Attestation: My signature below is to certify that this patient is under my care and that I, or nurse practitioner, or a physician's library clerical assistant working with me, has a face-to -face encounter with this patient.
[2017-04-08 16:53] VITALS: BP 165/96
== END 2017-04-08 17:57 | disposition home health service (06) | DRG 253 ==
LOC: EMEROO 13:16 → 2ANU 13:16 → SUATTDRO 17:10 → 2NENU 18:05 → 2ANU 18:16
PROVIDERS: ADMIT Hospitalist; ATTEND Internal Medicine